=== PATIENT | female | born 1980 | race Caucasian/White ===

== ENCOUNTER → 2016-07-29 | Outpatient (CLI) | payer BC ==
[2016-07-29 13:24] LABS: BASO # 0.1 K/mm3 (0.0-0.2); BASO % 1.3 % (0.0-1.0); EOS # 0.2 K/mm3 (0.0-0.50); LARGE UNSTAINED CELL # 0.1 K/mm3 (0.0-0.4); LARGE UNSTAINED CELL % 1.6 % (0.0-4.0); LYMPH # 1.7 K/mm3 (1.5-4.5); LYMPH % 22.1 % (24.0-44.0); MEAN CORPUSCULAR HEMOGLOBIN 30.9 pg (27.0-33.0); MEAN CORPUSCULAR HGB CONC 32.2 g/dl (32.0-36.5); MONO # 0.4 K/mm3 (0.0-0.8); NEUTROPHILS # 4.8 K/mm3 (1.8-7.7); NEUTROPHILS % 65.9 % (36.0-66.0); PLATELET COUNT, AUTOMATED 182 k/mm3 (150-450); RED CELL DISTRIBUTION WIDTH 12.6 % (11.5-14.5); WHITE BLOOD COUNT 7.3 K/mm3 (4.0-10.0)
== END ==
LOC: M WUC 09:08
PROVIDERS: ATTEND Obstetrics & Gynecology
DX: Z36 Encounter for antenatal screening of mother (principal); Z3A.00 Weeks of gestation of pregnancy not specified

== ENCOUNTER → 2016-10-04 | Outpatient (REF) | payer BC | LOC: M LAB REF 12:41 | PROVIDERS: ATTEND Obstetrics & Gynecology | DX: Z36 Encounter for antenatal screening of mother (principal); Z3A.00 Weeks of gestation of pregnancy not specified ==

== ENCOUNTER 2016-10-11 02:13 | Outpatient (CLI) | payer BC ==
[~2016-10-11] VITALS: Ht 157.5 cm; Wt 67.0 kg
[2016-10-11 02:24] VITALS: BP 136/83
[2016-10-11] MEDS ORDERED: LR 1,000 ML IV SCH (03:40)
[2016-10-11] MEDS ORDERED: LR 1,000 ML IV ONE (03:40)
--- NOTE | 2016-10-11 07:53 | IPNPDOC ---
Text Note Date of Service The patient was seen on 10/11/16. NOTE S: Patient is a 36 year old female who is a at 37.2 weeks gestation with an JANICE of 10/30/16 based off of her LMP and consistent with her 1st trimester ultrasound. She initiated her care in her first trimester at [facility]. Her has been uncomplicated. She presents to L&D with complaints of contractions that started at midnight and were every 5 minutes. She denies leaking of fluid or vaginal bleeding. Reports active movement. Reports contractions started after intercourse. Medical Hx: history of varicella as a child Surgical Hx: leep Social: single, with FOB, no history of drug abuse, alcohol abuse, non smoker, denies abuse (physical, sexual, emotional). O: FHR: 130, moderate variability, positive accelerations, no decelerations. Contractions every 2-10 minutes. SVE: 1/thick/high/posterior, no bloody show. Patient's cervical exam has not changed in after 2 hours. Vital signs: see below. A: IUP at 37 weeks 2 days gestation; not in active labor, Category I FHR tracing P: Patient discharged to home with significant other. Reviewed access to care, cross coverage to care, [facility], labor signs and symptoms, and danger signs to report. Patient to follow up with routine OB care. VS,Fishbone, I+O VS, Fishbone, I+O Vital Signs Date Time Temp Pulse Resp B/P Pulse Ox O2 Delivery O2 Flow Rate FiO2 10/11/16 02:24 98.4 83 136/83 JUSTIN DIAS CNM Oct 11, 2016 07:37
== END 2016-10-11 07:10 | disposition home or self-care (01) ==
LOC: M LDO 02:13
PROVIDERS: ATTEND Obstetrics & Gynecology
DX: O47.1 False labor at or after 37 completed weeks of gestation (principal); Z3A.37 37 weeks gestation of pregnancy

== ENCOUNTER 2016-10-28 15:07 | Inpatient (IN) | payer BC ==
[~2016-10-28] VITALS: Ht 157.5 cm; Wt 69.0 kg
[2016-10-28] VITALS (20 sets, daily range): BP systolic 122–143; BP diastolic 68–94
[2016-10-28 15:59] LABS: MEAN CORPUSCULAR HEMOGLOBIN 30.9 pg (27.0-33.0); MEAN CORPUSCULAR HGB CONC 33.6 g/dl (32.0-36.5); MEAN CORPUSCULAR VOLUME 91.9 fl (80.0-96.0); RED CELL DISTRIBUTION WIDTH 12.8 % (11.5-14.5); WHITE BLOOD COUNT 7.3 K/mm3 (4.0-10.0)
[2016-10-28] MEDS ORDERED: AMPICILLIN SOD 2 GM in D5W MINI-BAG PLUS 100 ML IV ONE (16:00)
[2016-10-28] MEDS ORDERED: LR 800 ML IV ONE (16:00)
[2016-10-28] MEDS ORDERED: PRENTAB9 PO (16:13)
[2016-10-28] MEDS ORDERED: LR 1,000 ML IV SCH (17:00)
[2016-10-28] MEDS ORDERED: OXYTOCIN DRIP 30 UNITS in APPROPRIATE DILUENT 1 EA IV SCH ×2 (17:45→22:15)
[2016-10-28] MEDS ORDERED: OXYTOCIN 30 UNITS IN 0.9% NaCl 500ML IV BAG (J2590) As Ordered ONE (17:52)
[2016-10-28] MEDS ORDERED: FENTANYL 2MCG/ML ROPIVACAINE 0.2% IN 0.9% NACL 200ML IVBAG As Ordered ONE (18:18)
[2016-10-28] MEDS ORDERED: LACTATED RINGER'S 1000 ML IV PRN (19:15)
[2016-10-28] MEDS ORDERED: diphenhydrAMINE INJ 50MG/ML VIAL (J1200) IV PRN (19:15)
[2016-10-28] MEDS ORDERED: ONDANSETRON 4MG/2ML VIAL (J2405) IV PRN (19:15)
[2016-10-28] MEDS ORDERED: NALOXONE INJ 0.4 MG/1 ML VIAL (J2310) IV PRN (19:15)
[2016-10-28] MEDS ORDERED: REFRIGERATOR IV KEYS XX PRN (19:15)
[2016-10-28] MEDS ORDERED: EPIDURAL COMMENT XX SCH (19:15)
[2016-10-28] MEDS ORDERED: ePHEDrine SULFATE 25 MG/5 ML(5MG/ML) SYRINGE IV PRN (19:15)
[2016-10-28] MEDS ORDERED: FENTANYL/ROPIVACAINE/NACL BAG 200 ML EPIDURAL SCH (19:15)
[2016-10-28] MEDS ORDERED: EPIDURAL/PCA KEYS XX PRN (19:15)
[2016-10-28] MEDS ORDERED: AMPICILLIN SOD 1 GM in D5W MINI-BAG PLUS 50 ML IV SCH (20:00)
--- NOTE | 2016-10-28 21:56 | HPE ---
DATE OF ADMISSION: 10/28/2016 Sandra is a 36-year-old female, 3, para 1-0-1-1 with an estimated date of confinement (EDC) of 10/30/2016, estimated gestational age (EGA) 39-5/7 weeks of gestation, presented to the office with complaints of contractions. Upon evaluation she was found to be 5 cm dilated, 80%, and -2. At this point the decision was made for admission. Her record reviewed which was essentially unremarkable. LABORATORY DATA: B+, rubella immune, hepatitis negative, HIV negative, GC/chlamydia negative, 1-hour sugar testing was within normal limits. Her GBS is positive. PAST MEDICAL HISTORY: Denies. PAST SURGICAL HISTORY: LEEP procedure. SOCIAL HISTORY: She denies any alcohol, drug or cigarette smoking. REVIEW OF SYSTEMS: Unremarkable. FAMILY HISTORY: Unremarkable. MEDICATIONS: - vitamins ALLERGIES: No known drug allergy. PHYSICAL EXAMINATION: Normal-appearing female in no acute distress. Abdomen soft, nontender, nondistended. Extremities no clubbing, cyanosis or edema. Vaginal exam: 5 cm, 80%, -2, fetus in vertex position. Tracing reviewed, category 1 tracing with contractions every 3-4 minutes. ASSESSMENT: 1. Intrauterine at 39-5/7 weeks. 2. Positive GBS. PLAN: Admit to labor and delivery. Routine labs sent. Pain management discussed. The patient opted for an epidural. Will continue to monitor. Anticipate delivery.
[2016-10-28] MEDS ORDERED: DOCUSATE SODIUM 100 MG CAP PO PRN (22:15)
[2016-10-28] MEDS ORDERED: ANUSOL HC CREAM 30GM TOP PRN (22:15)
[2016-10-28] MEDS ORDERED: ACETAMINOPHEN 500 MG TAB PO PRN (22:15)
[2016-10-28] MEDS ORDERED: DIBUCAINE 1% OINTMENT 30GM TOP PRN (22:15)
[2016-10-28] MEDS ORDERED: RHOGAM 300 MCG (1500 IU) INJ (J2790) IM SCH (22:15)
[2016-10-28] MEDS ORDERED: MEASLES,MUMPS,RUBELLA VACCINE INJ (MMR-II) (90707) SC SCH (22:15)
[2016-10-28] MEDS ORDERED: METHYLERGONOVINE MALEATE 0.2 MG TAB PO PRN (22:15)
[2016-10-28 22:42] LABS: CORD GAS ABE V -2.8; CORD GAS HCO3 V 23.4 MEQ/L; CORD GAS O2 SAT V 47.4 %; CORD GAS PCO2 V 45.6 mmHg; CORD GAS PH V 7.329 UNITS; CORD GAS PO2 V 21.2 mmHg; CORD GAS SBC V 20.8 MEQ/L; CORD GAS TCO2 V 24.8 MEQ/L
[2016-10-28 22:45] LABS: CORD GAS HCO3 A 26.8 MEQ/L; CORD GAS O2 SAT A 27.4 %; CORD GAS PCO2 A 56.3 mmHg; CORD GAS PH A 7.295 UNITS; CORD GAS SBC A 21.8 MEQ/L; CORD GAS TCO2 A 28.5 MEQ/L
--- NOTE | 2016-10-28 22:55 | DN ---
DATE: 10/28/2016 Sandra is a 36-year-old female, 3, para 1-0-1-1, who was admitted at 39-5/7 weeks gestation in active labor. She progressed to fully dilated. Delivered a live male in left occiput anterior position over an intact perineum. scores 8 and 9, weight 6 pounds 12 ounces. Placenta delivered spontaneously intact. Three-vessel cord. Perineum, vagina, cervix inspected. No laceration noted. Estimated blood loss 250 mL. Both mother and baby in stable condition.
[2016-10-29 00:40] VITALS: BP 129/83
[2016-10-29 01:21] VITALS: BP 144/86
[2016-10-29 06:38] VITALS: BP 120/78
[2016-10-29] MEDS: PRENATAL VITAMIN TAB PO SCH (07:47)
[2016-10-29] MEDS: IBUPROFEN 800 MG TAB PO PRN ×2 (07:48→17:10)
[2016-10-30] MEDS: IBUPROFEN 800 MG TAB PO PRN (04:44)
[2016-10-30 06:26] VITALS: BP 127/78
[2016-10-30] MEDS: PRENATAL VITAMIN TAB PO SCH (08:27)
[2016-10-30] MEDS ORDERED: ACET50TA PO (09:22)
[2016-10-30] MEDS ORDERED: MOTR200T44 PO (09:23)
== END 2016-10-30 19:13 | disposition home or self-care (01) | DRG 560 ==
LOC: M LDI 15:07 → M OBS 10-29 01:01
PROVIDERS: ADMIT Obstetrics & Gynecology; ATTEND Obstetrics & Gynecology
PROC: 10E0XZZ Delivery of Products of Conception, External Approach (ICD-10-PCS; principal; 2016-10-28)
PROC: 10907ZC Drainage of Amniotic Fluid, Therapeutic from Products of Conception, Via Natural or Artificial Opening (ICD-10-PCS; 2016-10-28)
DX: O99.824 Streptococcus B carrier state complicating childbirth (principal); Z3A.39 39 weeks gestation of pregnancy; Z37.0 Single live birth

== ENCOUNTER → 2020-07-03 | Outpatient (CLI) | payer OTHER ==
[~2020-07-03] MED LIST: DOXY100C37; FLUTISP; MAPA500T2 PO; MOTR200T44 PO; PRENTAB9 PO; SUDO30TA2
--- NOTE | 2020-07-03 15:55 | REP ---
INDICATION: CERVICALGIA,RADICULOPATHY COMPARISON: None. TECHNIQUE: AP, lateral, flexion/extension, bilateral oblique, and open-mouth views. FINDINGS: Advanced multilevel degenerative disc osteophyte complex noted at C5-6 and C4-5. Findings include osteophytosis, endplate sclerosis/heterogeneity and disc space narrowing. Remainder of examination demonstrates moderate age-related degenerative spondylosis. No acute fracture/compression injury or acute subluxation. Open mouth view demonstrates normal C1-C2 articulation and odontoid process. IMPRESSION: Focal advanced degenerative changes at C5-6 and C4-5. Consider MRI for further investigation if the patient remains symptomatic. <Electronically signed by Bobby Baldwin > 07/03/20 3100
== END ==
LOC: M WUC 15:23
PROVIDERS: ATTEND Nurse Practitioner Adult Health
DX: M50.321 Other cervical disc degeneration at C4-C5 level (principal); M50.322 Other cervical disc degeneration at C5-C6 level; M54.12 Radiculopathy, cervical region

== ENCOUNTER → 2021-10-30 | Outpatient (CLI) | payer OTHER ==
[~2021-10-30] MED LIST changes: +DOXY-443; -DOXY100C37
== END ==
LOC: M PLAIMG 14:04
PROVIDERS: ATTEND Nurse Practitioner Family
DX: M51.26 Other intervertebral disc displacement, lumbar region (principal); M51.27 Other intervertebral disc displacement, lumbosacral region